=== PATIENT | male | born 2000 | race Caucasian/White ===

== ENCOUNTER 2019-12-25 12:26 | Emergency (ER) | payer SELFPAY ==
--- NOTE | 2019-12-25 12:40 | NUR ---
PATIENT CHECKED IN AND DECIDED HE WOULD LEAVE BECAUSE WE COULD NOT TELL HIM HOW MUCH VISIT WOULD BE.
== END 2019-12-25 12:42 | disposition left against medical advice (07) ==
LOC: EDUNIT# 12:26 → ER 12:30
DX: S89.90XA Unspecified injury of unspecified lower leg, initial encounter (principal); X58.XXXA Exposure to other specified factors, initial encounter